=== PATIENT | male | born 1980 | race Caucasian/White ===

== ENCOUNTER 2021-10-28 12:24 | Emergency (ER) | payer BC, OTHER ==
[2021-10-28] MEDS ORDERED: Ketorolac 60 MG/2 ML SDV IM ONE (13:51)
[2021-10-28] MEDS ORDERED: Ketorolac 60 MG/2 ML SDV ONE (13:54)
--- NOTE | 2021-10-28 13:57 | EDM.PDOC ---
ED HPI GENERAL MEDICAL PROBLEM - General Chief Complaint: Abdominal Pain Stated Complaint: SEVERE ABDOMINAL PAIN Time Seen by Provider: 10/28/21 12:45 Source of Information: Reports: Patient History Limitations: Reports: No Limitations - History of Present Illness INITIAL COMMENTS - FREE TEXT/NARRATIVE: This is a 41yo M with acute abdominal pain that started yesterday. 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 Abdomen Pain Score (Numeric/FACES): 4 - Related Data Allergies Allergy/AdvReac Type Severity Reaction Status Date / Time No Known Allergies Allergy Verified 10/28/21 13:12 Home Meds: Home Meds NK [No Known Home Meds] 10/28/21 [History] Past Medical History - Past Surgical History Musculoskeletal Surgical History: Reports: Other (See Below) Other Musculoskeletal Surgeries/Procedures:: ACL replaced in Left knee Social & Family History - Tobacco Use Tobacco Use Status *Q: Former Tobacco User Used Tobacco, but Quit: Yes Month/Year Tobacco Last Used: 07/31/21 - Caffeine Use Caffeine Use: Reports: Energy Drinks, Soda - Recreational Drug Use Recreational Drug Use: No ED ROS GENERAL - Review of Systems Review Of Systems: Comprehensive ROS is negative, except as noted in HPI. ED EXAM, GI/ABD - Physical Exam Exam: See Below Exam Limited By: No Limitations General Appearance: Alert, WD/WN, No Apparent Distress Ears: Normal External Exam Nose: Normal Inspection Throat/Mouth: Normal Inspection Head: Atraumatic, Normocephalic Neck: Normal Inspection, Supple, Non-Tender Respiratory/Chest: No Respiratory Distress, Lungs Clear, Normal Breath Sounds Cardiovascular: Normal Peripheral Pulses, Regular Rate, Rhythm, No Edema GI/Abdominal Exam: Tender, Abnormal Bowel Sounds (decreased) Back Exam: Normal Inspection Extremities: Normal Inspection Course - Vital Signs Last Recorded V/S: Last Vital Signs Temp 37.3 C 10/28/21 13:13 Pulse 106 H 10/28/21 13:13 Resp 18 10/28/21 13:13 BP 138/73 10/28/21 13:13 Pulse Ox 96 10/28/21 13:13 - Orders/Labs/Meds Labs: Laboratory Tests 10/28/21 10/28/21 10/28/21 Range/Units 13:20 13:20 13:20 WBC 16.0 H (4.0-11.0) K/uL RBC 4.85 (4.50-6.50) M/uL Hgb 15.3 (13.0-18.0) g/dL Hct 44.2 (40.0-54.0) % MCV 91 (76-96) fL MCH 31.5 (27.0-32.0) pg MCHC 34.6 (31.0-35.0) g/dL RDW 13.0 (11.0-16.0) % Plt Count 237 (150-400) K/uL MPV 9.5 (6.0-10.0) fL Neut % (Auto) 89.6 H (45.0-70.0) % Lymph % (Auto) 4.4 L (20.0-40.0) % [place] % (Auto) 5.8 (3.0-10.0) % Eos % (Auto) 0.1 L (1.0-5.0) % Baso % (Auto) 0.1 (0.0-0.5) % Neut # (Auto) 14.35 H (2.00-7.50) K/uL Lymph # (Auto) 0.70 L (1.50-4.00) K/uL [place] # (Auto) 0.92 H (0.20-0.80) K/uL Eos # (Auto) 0.02 L (0.04-0.40) K/uL Baso # (Auto) 0.01 L (0.02-0.10) K/uL Sodium 135 L (136-145) mmol/L Potassium 4.0 (3.5-5.1) mmol/L Chloride 102 (98-107) mmol/L Carbon Dioxide 26.6 (21.0-32.0) mmol/L Anion Gap 10.4 (5.0-15.0) mmol/L BUN 16 (8-26) mg/dL Creatinine 1.21 (0.70-1.30) mg/dL Est Cr Clr Drug Dosing 88.18 mL/min Estimated GFR (MDRD) > 60 (>60) MLS/MIN BUN/Creatinine Ratio 13.2 (6-25) Glucose 134 H (74-100) mg/dL Lactic Acid 1.4 (0.4-2.0) mmol/L Calcium 9.0 (8.5-10.1) mg/dL Total Bilirubin 0.6 (0.0-1.0) mg/dL AST 19 (15-37) U/L ALT 43 (12-78) U/L Alkaline Phosphatase 73 (46-116) U/L Total Protein 7.4 (6.4-8.2) g/dL Albumin 3.8 (3.4-5.0) g/dL Globulin 3.6 (2.2-4.2) g/dL Albumin/Globulin Ratio 1.1 (0.8-2.0) Lipase 51 L (73-393) U/L Meds: Medications Discontinued Medications Generic Name Dose Route Start Last Admin Trade Name Freq PRN Reason Stop Dose Admin Ceftriaxone Sodium 1 gm 10/28/21 14:12 Ceftriaxone 1 Gm Vial IM 10/28/21 14:13 ONETIME ONE Ceftriaxone Sodium Confirm 10/28/21 14:16 Ceftriaxone 1 Gm Vial Administered 10/28/21 14:17 Dose 1 gm .ROUTE .STK-MED ONE Ketorolac Tromethamine 60 mg 10/28/21 13:51 10/28/21 13:59 Ketorolac 60 Mg/2 Ml Sdv IM 10/28/21 13:52 60 mg ONETIME ONE Administration Ketorolac Tromethamine Confirm 10/28/21 13:54 10/28/21 13:59 Ketorolac 60 Mg/2 Ml Sdv Administered 10/28/21 13:55 Not Given Dose 60 mg .ROUTE .STK-MED ONE Departure - Departure Time of Disposition: 14:00 Disposition: Home, Self-Care 01 Clinical Impression: Cystitis - Discharge Information Instructions: Ketorolac Injection, Ceftriaxone Injection, Phenazopyridine tablets Referrals: PCP,None [Primary Care Provider] - Forms: ED Department Discharge Additional Instructions: Follow up with Primary Care Physician in 1 week. Take medications as ordered. Sepsis Event Note (ED) - Evaluation Sepsis Screening Result: No Definite Risk - Focused Exam Vital Signs: Vital Signs Temp Pulse Resp BP Pulse Ox 10/28/21 13:13 37.3 C 106 H 18 138/73 96 - Problem List & Annotations (1) Cystitis SNOMED Code(s): 66198030 Code(s): N30.90 - CYSTITIS, UNSPECIFIED WITHOUT HEMATURIA Status: Acute Priority: High Current Visit: Yes - Problem List Review Problem List Initiated/Reviewed/Updated: Yes - Assessment/Plan Plan: Counseled on labs and CT imaging results. Discussed cystitis and management. Discussed f/u with PCP as needed and if symptoms return or worsen. F/u as directed. Discussed antibiotics use and medications AZO and Zofran use. Rtc or ER as needed.
[2021-10-28] MEDS ORDERED: cefTRIAXone 1 GM Vial IM ONE (14:12)
[2021-10-28] MEDS ORDERED: cefTRIAXone 1 GM Vial ONE (14:16)
--- NOTE | 2021-10-28 14:23 | CT ---
DATE OF SERVICE: 10/28/2021 CLINICAL DATA: Abdominal Pain Unenhanced abdomen and pelvic CT: Multi slice acquisition through the abdomen and pelvis without IV or oral contrast was performed. The no priors. The the lung bases are clear. The heart size is normal. There is diffuse fatty infiltration of the liver. No focal hepatic lesions. The gallbladder appears normal. No calcified gallstones. The spleen appears normal. The pancreas appears normal. The right and left adrenals appear normal. The right and left kidneys appear normal. No nephrocalcinosis or nephrolithiasis. No hydronephrosis or hydroureter. The bladder is partially fluid filled. The bladder wall does appear to be mildly thickened. This is probably related to nondistention. Cystitis should be considered. The prostate is mildly enlarged. No evidence of appendicitis. There is minimal diverticulosis. No evidence of diverticulitis. No free air. No free fluid. No dilated loops of bowel. No adenopathy. No aortic aneurysm. There is a small fat containing umbilical hernia. There is mild degenerative disc disease at multiple levels in the lower thoracic spine. No other significant findings. MTDD
== END 2021-10-28 14:35 | disposition home or self-care (01) ==
LOC: LB.ED 12:24
DX: N30.90 Cystitis, unspecified without hematuria (principal); Z87.891 Personal history of nicotine dependence
CPT/HCPCS: 36415; 74176; 80053; 83605; 83690; 85025; 96372; 99284; J0696; J1885

== ENCOUNTER 2022-08-03 18:31 | Emergency (ER) | payer BC ==
[2022-08-03] MEDS ORDERED: Cephalexin 500 MG Cap ONE (18:32)
[2022-08-03] MEDS ORDERED: traMADol 50 MG Tab ONE (18:32)
[2022-08-03 18:49] VITALS: BP 133/87; PULSE 92
[2022-08-03] MEDS: traMADol 50 MG Tab PO ONE ×2 (19:12→20:06)
[2022-08-03] MEDS: Diphtheria,Pertussis(Acell),Tetanus Vaccine 0.5 ML SDV IM ONE (19:15)
[2022-08-05] MEDS: traMADol 50 MG Tab ONE (12:59)
== END 2022-08-03 20:31 | disposition home or self-care (01) ==
LOC: LB.ED 18:31
DX: S91.311A Laceration without foreign body, right foot, initial encounter (principal); Z23 Encounter for immunization; W22.8XXA Striking against or struck by other objects, initial encounter
CPT/HCPCS: 73600-RT; 73620-RT; 90471; 90715; 99283-25; A9270-GY